=== PATIENT | male | born 1985 | race Caucasian/White ===

== ENCOUNTER 2019-09-21 17:49 | Emergency (ER) | payer BC ==
[~2019-09-21] VITALS: Ht 175.3 cm; Wt 80.0 kg
[~2019-09-21 17:49] MED LIST: AMOXICILLIN500 MG PO; CLARITIN10 M1 PO; ZOFRAN ODT4 MG PO
[2019-09-21 18:01] VITALS: BP 138/77
[2019-09-21] MEDS ORDERED: ONDANSETRON4 MG PO ×2 (18:04→18:07)
[2019-09-21] MEDS ORDERED: ZPAK PO ×2 (18:04→18:07)
[2019-09-21] MEDS ORDERED: TAM75CAP PO ×2 (18:04→18:07)
== END 2019-09-21 18:27 | disposition home or self-care (01) | DRG 153 ==
LOC: ED 17:49
DX: J11.1 Influenza due to unidentified influenza virus with other respiratory manifestations (principal)